=== PATIENT | female | born 1985 | race Caucasian/White ===

== ENCOUNTER 2018-07-21 17:15 | Emergency (ER) | payer MEDICAID ==
[~2018-07-21] VITALS: Ht 170.2 cm; Wt 59.0 kg
[2018-07-21] MEDS ORDERED: IV NORMAL SALINE 1000 ML BAG IV ONE (17:30)
[2018-07-21] MEDS ORDERED: ONDANSETRON 4 MG/2 ML VIAL IV ONE (17:30)
[2018-07-21] MEDS ORDERED: MORPHINE SULFATE 2 MG/1 ML DISP.SYRIN IV ONE (17:30)
[2018-07-21] MEDS ORDERED: CIPROFLOXACIN HCL 250 MG TABLET PO ONE (18:00)
[2018-07-21] MEDS ORDERED: CIPROFLOXACIN HCL 250 MG TABLET ONE (18:03)
--- NOTE | 2018-07-21 18:06 | NUR ---
Patient discharged to home in stable conditon. Written and verbal after care instructions given. Patient verbalizes understanding of instructions.
== END 2018-07-21 18:10 | disposition home or self-care (01) ==
LOC: ER 17:17
DX: G03.9 Meningitis, unspecified (principal); Z79.2 Long term (current) use of antibiotics
CPT/HCPCS: 99282; A4663